=== PATIENT | male | born 1960 | race Caucasian/White ===

== ENCOUNTER → 2020-11-15 | Outpatient (CLI) | payer OTHER ==
[~2020-11-15] MED LIST: ALBUTEROL2.5 MG/0.5 INH; AMBIEN 10 MG TA10 MG PO; ASPIR 8181 M1 PO; CLONAZEPAM 1 MG1 M1 PO; FLEXERIL PO; IMDUR 30 MG TAB30 M1 PO; MELOXICAM7.5 MG PO; OXYCODONE-ACET1 EACH PO; PEPCID20 MG PO; PERCOCET 10-321 EACH PO; PERCOCET 7.5-51 EACH PO; QUINAPRIL 20 MG20 MG PO; TOPROL XL50 MG PO; ZOLOFT 50 MG TA50 M1 PO
== END ==
LOC: CAT 08:52
PROVIDERS: ATTEND Internal Medicine
DX: Z13.6 Encounter for screening for cardiovascular disorders (principal); E78.00 Pure hypercholesterolemia, unspecified; I25.10 Atherosclerotic heart disease of native coronary artery without angina pectoris